=== PATIENT | female | born 2000 | race Two or more races ===

== ENCOUNTER 2020-09-21 03:43 | Emergency (ER) | payer BC ==
[~2020-09-21] VITALS: Ht 160 cm; Wt 61.2 kg
[2020-09-21 03:50] VITALS: BP 109/60
[2020-09-21] MEDS ORDERED: IBUPROFEN 200 MG TABLET ONE (03:58)
[2020-09-21] MEDS ORDERED: IBUPROFEN 600 MG TABLET ONE (03:59)
[2020-09-21] MEDS: IBUPROFEN 400 MG TABLET PO ONE (04:03)
--- NOTE | 2020-09-21 05:06 | NUR ---
Patient discharged to home in stable condition. Written and verbal after care instructions given. Patient verbalizes understanding of instruction.
== END 2020-09-21 05:07 | disposition home or self-care (01) ==
LOC: ER 03:48
DX: R51.9 Headache, unspecified (principal)

== ENCOUNTER 2022-01-10 17:30 | Emergency (ER) | payer BC ==
[~2022-01-10] VITALS: Ht 160 cm; Wt 61.2 kg
[2022-01-10] MEDS ORDERED: IBUPROFEN 600 MG TABLET ONE (18:08)
[2022-01-10 18:15] VITALS: BP 110/75
--- NOTE | 2022-01-10 18:15 | NUR ---
Patient discharged to home in stable condition. Written and verbal after care instructions given. Patient verbalizes understanding of instruction.
[2022-01-10] MEDS ORDERED: IBUPROFEN 600 MG TABLET PO ONE (18:30)
== END 2022-01-10 18:16 | disposition home or self-care (01) ==
LOC: ER 17:51
DX: S09.90XA Unspecified injury of head, initial encounter (principal); W22.8XXA Striking against or struck by other objects, initial encounter; Y93.89 Activity, other specified; Y92.89 Other specified places as the place of occurrence of the external cause; Y99.8 Other external cause status